=== PATIENT | female | born 1955 | race Caucasian/White ===

== ENCOUNTER 2018-09-27 09:43 | Emergency (ER) | payer MEDICAID, OTHER ==
[2018-09-27 09:54] VITALS: BP 116/77; PULSE 83; RESP 20
[2018-09-27 09:55] VITALS: BMI 39.3
--- NOTE | 2018-09-27 10:18 | ED PDOC ---
HPI: General Adult Time Seen by Provider: 09/27/18 10:16 Chief Complaint (Nursing): Cough, Cold, Congestion Chief Complaint (Provider): cough History Per: Patient (63 y/o female h/o Asthma/DM/HTN notes cough/sore throat that began yesterday. Denies any productive sputum. Denies any fevers/chills/vomiting.) Past Medical History Reviewed: Historical Data, Nursing Documentation, Vital Signs Vital Signs: Last Vital Signs Temp 98.3 F 09/27/18 09:54 Pulse 83 09/27/18 09:54 Resp 20 09/27/18 09:54 BP 116/77 09/27/18 09:54 Pulse Ox 97 09/27/18 09:54 Primary Care Provider: Gregg Soto - Medical History PMH: Asthma, HTN - Family History Family History: States: No Known Family Hx, Diabetes, Hypertension - Immunization History Hx Tetanus Toxoid Vaccination: No Hx Influenza Vaccination: Yes Hx Pneumococcal Vaccination: No - Home Medications Home Medications: Ambulatory Orders Medication Instructions Recorded Guaifenesin [Cough Syrup] 20 ml PO Q6 PRN #300 ml 09/27/18 - Allergies Allergies/Adverse Reactions: Allergies Allergy/AdvReac Type Severity Reaction Status Date / Time No Known Allergies Allergy Verified 09/27/18 10:03 Review of Systems ROS Statement: Except As Marked, All Systems Reviewed And Found Negative Physical Exam - Reviewed Nursing Documentation Reviewed: Yes Vital Signs Reviewed: Yes - Physical Exam Appears: Positive for: Well, Non-toxic, No Acute Distress Head Exam: Positive for: ATRAUMATIC, NORMAL INSPECTION, NORMOCEPHALIC Skin: Positive for: Normal Color, Warm, DRY Eye Exam: Positive for: EOMI, Normal appearance, PERRL ENT: Positive for: Normal ENT Inspection Neck: Positive for: Normal, Painless ROM Cardiovascular/Chest: Positive for: Regular Rate, Rhythm Respiratory: Positive for: CNT, Normal Breath Sounds Gastrointestinal/Abdominal: Positive for: Normal Exam, Soft Back: Positive for: Normal Inspection Extremity: Positive for: Normal ROM Neurological/Psych: Positive for: Awake, Alert, Normal Tone - ECG O2 Sat by Pulse Oximetry: 97 - Progress ED Course And Treament: rapid strep neg Disposition - Clinical Impression Clinical Impression: Cough - Patient ED Disposition Is Patient to be Admitted: No - Disposition Disposition: Routine/Home Disposition Time: 11:19 Condition: FAIR Prescriptions: Guaifenesin [Cough Syrup] 20 ml PO Q6 PRN #300 ml PRN Reason: Cough Instructions: Cough in Adults Print Language: [id number]
[2018-09-27 11:29] VITALS: TEMP 98.6; O2SAT 100
== END 2018-09-27 11:28 | disposition home or self-care (01) ==
LOC: H.ER 09:43
DX: R05 Cough (principal)